=== PATIENT | female | born 1950 | race Caucasian/White ===

== ENCOUNTER 2021-11-30 15:59 | Emergency (ER) | payer MEDICARE, OTHER ==
[2021-11-30] MEDS ORDERED: SYNTHROID RP0.1 MG PO (16:05)
[2021-11-30 16:53] LABS: BASO # 0.02 K/mm3 (0.02-0.10); HEMATOCRIT 37.9 % (37.0-47.0); HEMOGLOBIN 12.8 g/dL (12.5-16.0); LYMPH# 1.42 K/mm3 (1.50-4.00); MEAN CELL VOLUME 86 fl (78-100); MEAN CORPUSCULAR HEMOGLOBIN 29 pg (27-31); MEAN CORPUSCULAR HGB CONC 34 g/dL (33-37); MEAN PLATELET VOLUME 9.1 fl (7.4-10.4); MONO # 0.77 K/mm3 (0.20-0.80); PLATELET COUNT 238 K/mm3 (130-400); RED BLOOD COUNT 4.41 M/mm3 (4.10-5.30); RED CELL DISTRIBUTION WIDTH 12.6 % (11.5-14.5); WHITE BLOOD COUNT 7.6 K/mm3 (4.8-10.8)
[2021-11-30 16:57] LABS: ALBUMIN 4.3 g/dL (3.4-4.8)
[2021-11-30 16:58] LABS: POTASSIUM 3.7 mmol/L (3.5-5.1)
[2021-11-30 16:59] LABS: CALCIUM 9.2 mg/dL (8.3-10.5)
[2021-11-30 17:00] LABS: TOTAL PROTEIN 7.1 g/dL (6.2-8.1)
[2021-11-30 17:02] LABS: TOTAL BILIRUBIN 0.6 mg/dL (0.2-1.2)
[2021-11-30 17:09] LABS: URINE APPEARANCE CLEAR; URINE BILIRUBIN NEGATIVE (NEGATIVE); URINE BLOOD TRACE (NEGATIVE); URINE COLOR YELLOW; URINE GLUCOSE NEGATIVE (NEGATIVE); URINE KETONE NEGATIVE (NEGATIVE); URINE LEUKOCYTE ESTERASE TRACE (NEGATIVE); URINE MUCUS PRESENT (NOT PRESENT); URINE NITRATE NEGATIVE (NEGATIVE); URINE PROTEIN(semi-quant) NEGATIVE (NEGATIVE); URINE UROBILINOGEN NORMAL (NORMAL)
[2021-11-30 17:34] VITALS: BP 174/77
== END 2021-11-30 17:36 | disposition home or self-care (01) ==
LOC: ED 15:59
PROVIDERS: Nurse Practitioner
DX: T67.5XXA Heat exhaustion, unspecified, initial encounter (principal); Z28.310 Unvaccinated for COVID-19
CPT/HCPCS: J7030